=== PATIENT | female | born 1955 | race Caucasian/White ===

== ENCOUNTER 2016-08-25 10:22 | Day surgery (SDC) | payer OTHER ==
[2016-08-24 14:58] VITALS: BMI 20.0
[2016-08-25] VITALS (14 sets, daily range): BP systolic 106–146; BP diastolic 59–83; PULSE 77–98; RESP 14–24; Ht 170.2 cm; Wt 56.8 kg
[~2016-08-25] VITALS: Ht 170.2 cm; Wt 56.8 kg
[~2016-08-25 10:22] MED LIST: CEFAZOLIN 1 GM/50 ML (PMX) 50 ML IVPB ONE; DOESN'T KNOW MEDS; EPHEDrine SULFATE 50 MG/5 ML SYG ONE; SOD CHLORIDE 0.9% 1,000 ML IV SCH
--- NOTE | 2016-08-25 11:41 | RADRPT ---
PROCEDURE: XR Chest. CLINICAL INDICATION: Preoperative. TECHNIQUE: Single frontal chest x-ray. COMPARISON: 10/02/2008 FINDINGS: The lungs are clear of acute infiltrates, edema, effusions, or masses.. The cardiomediastinal silho uette is unremarkable. The osseous structures are intact. There are old healed right rib fractures. IMPRESSION: No acute cardiopulmonary disease. RPTAT: AA .Gilberto Sanchez MD, MD Date Time Electronically viewed and signed by .Gilberto Sanchez MD, MD on 08/25/2016 11:41 .L/
[2016-08-25] MEDS ORDERED: ISOSULFAN BLUE 1% 5 ML INJ SC ONE (11:59)
[2016-08-25] MEDS ORDERED: ALEN70TA30 PO (12:03)
[2016-08-25] MEDS ORDERED: LEVO25TA59 PO (12:03)
[2016-08-25] MEDS ORDERED: DOCU-144 PO (12:04)
[2016-08-25] MEDS ORDERED: RANI150T5 PO (12:05)
[2016-08-25] MEDS ORDERED: DULO60CA6 PO (12:05)
[2016-08-25] MEDS ORDERED: SIN25100 PO ×2 (12:06→12:13)
[2016-08-25] MEDS ORDERED: ACYC400T2 PO (12:07)
[2016-08-25 12:08] LABS: BASOPHILS % 0.6 % (0.0-2.0); EOSINOPHILS % 1.1 % (0.0-7.0); HEMATOCRIT 37.7 % (37.0-47.0); HEMOGLOBIN 12.7 g/dl (12.0-16.0); LYMPHOCYTES % 23.8 % (15.0-51.0); MEAN CORPUSCULAR HEMOGLOBIN 31.8 pg (29.0-33.0); MEAN CORPUSCULAR HGB CONC 33.6 g/dl (32.0-37.0); MEAN CORPUSCULAR VOLUME 94.7 fl (82.0-101.0); MEAN PLATELET VOLUME 7.3 fl (7.4-10.4); MONOCYTE # 0.5 10^3/ul (0.3-0.9); MONOCYTES % 10.8 % (0.0-11.0); NEUTROPHIL # 2.7 10^3/ul (1.6-7.5); NEUTROPHILS % 63.7 % (39.0-77.0); PLATELET COUNT 165 10^3/UL (140-440); RED BLOOD COUNT 3.99 10^6/ul (4.20-5.40); RED CELL DISTRIBUTION WIDTH 13.4 % (11.5-14.5); UNCORRECTED WBC 4.3 10^3/ul (4.8-10.8); WHITE BLOOD COUNT 4.3 10^3/ul (4.8-10.8)
[2016-08-25] MEDS ORDERED: LORA-441 PO (12:08)
[2016-08-25 12:27] LABS: CALCIUM 9.1 mg/dl (8.4-10.2); CREATININE 0.56 mg/dl (0.44-1.00); POTASSIUM 4.2 mmol/L (3.5-5.1)
[2016-08-25] MEDS ORDERED: PROPOFOL 20 ML ONE (12:40)
[2016-08-25 12:41] LABS: CONDITION 1
[2016-08-25 12:44] LABS: INR 0.98
[2016-08-25 12:45] LABS: PARTIAL THROMBOPLASTIN TIME 26.8 Sec (25.0-35.0)
[2016-08-25] MEDS ORDERED: ONDANSETRON 4 MG INJ ONE (12:53)
[2016-08-25] MEDS ORDERED: FAMOTIDINE 20 MG INJ ONE (12:53)
[2016-08-25] MEDS ORDERED: DEXAMETHASONE 4 MG/ML 1 ML INJ ONE (12:54)
[2016-08-25] MEDS ORDERED: CEFAZOLIN 1 GM INJ ONE (12:55)
[2016-08-25] MEDS ORDERED: PHENYLephrine (100 MCG/ML) 5ML SYG ONE (12:56)
[2016-08-25] MEDS ORDERED: HYDROmorphONE (0.2 MG/ML) 10ML SYG IV PRN (14:00)
[2016-08-25] MEDS ORDERED: DIPHENHYDRAMINE 50 MG INJ IV PRN (14:00)
[2016-08-25] MEDS ORDERED: ONDANSETRON 4 MG INJ IV PRN (14:00)
--- NOTE | 2016-08-25 14:50 | OPR ---
DATE OF OPERATION: 08/25/2016 PREOPERATIVE DIAGNOSIS: Invasive cancer, left breast. POSTOPERATIVE DIAGNOSIS: Invasive cancer, left breast. OPERATION PERFORMED: Left partial mastectomy and sentinel lymph node biopsy. ANESTHESIA: General. ANESTHESIOLOGIST: Nii Finch DO SURGEON: Oliver Pruitt MD MOTION STUDY TECHNICIAN: Simón Zepeda MD INDICATIONS FOR PROCEDURE: The patient is a 61-year-old female who underwent surveillance mammograp hy and was found to have a suspicious lesion in the left breast. Subsequent biopsy confirmed an inv asive cancer. She was counseled as to the need for definitive surgical treatment. The tumor was pa lpable. Therefore, decision was made to proceed with left partial mastectomy, sentinel lymph node b iopsy, possible axillary dissection. She consented and was scheduled for surgery. DESCRIPTION OF PROCEDURE: The patient was brought to the operating theater. The left breast and ax illary region was prepped and draped in the usual sterile fashion. Approximately 4 mL of 1% Lymphaz urin blue dye were injected peritumorally. The breast was gently massaged for 12 minutes. At this point, a 3 cm incision was made in the left axillary hairline. Subcutaneous tissue was dissected wi th cautery down through the clavipectoral fascia. A dye-stained lymphatic was traced to an obvious sentinel node. The sentinel node was resected with the LigaSure device. Intraoperative analysis pe rformed by attending pathologist, Dr. Damion Eugene, was negative for obvious metastatic disease. He decided to defer to permanent sections. Therefore, the wound was irrigated. Minimal bleeding wa s controlled with cautery. The skin was closed with 4-0 Vicryl suture in subcuticular fashion. Attention was then directed to performing the partial mastectomy. A periareolar incision was made f rom the 9 o'clock location through the 12 o'clock location to the 3 o'clock location. Subcutaneous tissue was dissected with cautery. Skin edges were elevated with skin hooks. Wide circumferential dissection of the tissue associated with the mass took place, taking great care to ensure adequate m argin. Specimen was elevated, transected, oriented, it was sent for gross analysis. Margins were g rossly clear as per attending pathologist, Dr. Damion Eugene; therefore, the wound was irrigated. Minimal bleeding was controlled with cautery. The skin was reapproximated with deep dermal layer of 4-0 Vicryl sutures in interrupted fashion followed by final skin approximation with 5-0 PDS suture in subcuticular fashion. Dermabond was then applied to both incisions. The patient tolerated the p rocedure well. Estimated blood loss was 20 mL. There were no complications. The patient was trans ported in stable condition to the recovery room where circumferential compression dressing was appli ed. Dictated By: OLIVER PRASAD/TONJA Conf#: [id number] DID#: [id number]
--- NOTE | 2016-08-25 20:47 | RADRPT ---
Vent Rate: 65 bpm RR Interval: 0 msec TN Interval: 188 msec QRS Duration: 86 msec QT Interval: 408 msec QTC Interval: 424 msec P-R-T [place]: 82 - 82 - 83 degrees Normal sinus rhythm Normal ECG Electronically Signed By: Karl Dejesus [id number]
== END 2016-08-25 16:48 | disposition home or self-care (01) ==
LOC: SDS 10:22
PROVIDERS: ATTEND Surgery Surgical Oncology
DX: C50.912 Malignant neoplasm of unspecified site of left female breast (principal); G20 Parkinson's disease; E03.9 Hypothyroidism, unspecified
CPT/HCPCS: 19301; 38500; 38792; 71010; 80048; 85025; 85610; 85730; 93005; J0690; J1100; J2370; J2405; J3010; Z7512; Z7610; Q9968

== ENCOUNTER 2018-04-19 15:09 | Day surgery (SDC) | END 2018-04-19 21:30 | disposition home or self-care (01) ==

== ENCOUNTER 2018-04-24 11:53 | Inpatient (IN) | END 2018-04-26 16:55 | DRG 689 ==